=== PATIENT | male | born 1940 | race Caucasian/White ===

== ENCOUNTER 2016-09-20 14:18 | Emergency (ER) | payer OTHER ==
--- NOTE | ~2016-09-20 | CN ---
Consultation Report [facility] [id number] [place]. [address] NAME: BENITO PEREA : 44 STATUS : DEP [facility]#: [id number] AGE: 75 ADM/REG DATE : 09/20/16 MR#: [id number] REPORT SERV DATE: 09/20/16 DICTATED BY: SUSIE FERREIRA DATE: 09/20/16 REPORT STATUS : Draft TRANSCRIBED BY: MODL DATE: 09/20/16 MEDICAL CONSULTATION DATE OF CONSULTATION: 09/20/2016 ATTENDING PHYSICIAN: Dr. Isak Miner. REASON FOR CONSULTATION: Anemia. HISTORY: This is a 75-year-old white male, who had some preliminary blood work drawn for his annual physical exam by Dr. Kasia Alonzo. Someone from Dr. Alonzo's office called him and told him to get to the emergency room quickly because his hemoglobin was 7.4, hematocrit was 26.4. He does have an MCV of 68. He had a colonoscopy last year. Stool was checked in the emergency room by nurse practitioner, Antonia, which was negative for blood. He has no evidence of bleeding and no signs or symptoms of peptic ulcer disease. He does see Dr. Kentrell Goodwin for his routine colonoscopies, which was done most recently in the last year. He has had some occasional bright red blood per rectum, as he does have a history of fissures and hemorrhoids in the past. He has had no history of peptic ulcer disease. HOME MEDICATIONS: Include artificial tears, calcium carbonate, vitamin D, vitamin B12, Tylenol for sleep, docusate sodium, metformin 1500 mg p.o. daily, rosuvastatin 20 mg daily, triamcinolone cream, and Maxzide 25 p.o. daily. The patient has been feeling somewhat fatigued as he climbs stairs. SOCIAL HISTORY: He is , lives with . Does not smoke or drink. He lives off [facility] in [place] and sees Dr. Alonzo up at [facility]. He does not smoke, drink, or dip snuff. He goes to [facility] in [place]. FAMILY HISTORY: His father and his brother of heart attacks in the past. REVIEW OF SYSTEMS: He has had some dyspnea with exertion walking up 13 steps and does feel fatigued. Cannot do as much work as he used to. Does not have any swelling in lower extremities. No chest pain. No fever, chills, night sweats, melena, hematemesis, fits, seizures, or convulsions. The remainder of the review of systems is negative. PHYSICAL EXAMINATION: VITAL SIGNS: His blood pressure was 140/70 with a heart rate 80, respiratory rate 16, and afebrile. HEENT: EOMI. Sclerae are clear. Conjunctivae slightly pale. NECK: No bruit, without any JVD. CHEST: Clear to A and P. HEART: Regular S1, S2 without murmur or click. Consultation Report [facility] [id number] [place]. [address] NAME: BENITO PEREA : 44 STATUS : DEP ER PAT#: [id number] AGE: 75 ADM/REG DATE : 09/20/16 MR#: [id number] REPORT SERV DATE: 09/20/16 DICTATED BY: SUSIE FERREIRA DATE: 09/20/16 REPORT STATUS : Draft TRANSCRIBED BY: SUNDEEP DATE: 09/20/16 ABDOMEN: Soft, nontender. Bowel sounds positive. EXTREMITIES: Have no edema. Distal pulses intact dorsalis pedis and posterior tibial. NEUROLOGIC: Speech is cogent, goal directed, and without dysarthria. His reasoning is intact. LABORATORY DATA: A type and screen was done before my arrival. He has O positive blood. Antibody screen is negative. The hemoglobin is 7.4, hematocrit 26.4, MCV is 68.8 with platelet count of 223,000. His INR was 1.2. His CMP showed sodium 144, potassium 3.2, creatinine 1.14, BUN 14, glucose was 135. Liver tests were normal. ASSESSMENT: 1. Iron deficiency anemia, hypochromic microcytic. This is likely an iron-deficiency anemia. We will check a ferritin, iron, and TIBC. I am going to go ahead and prescribe him iron. He has hematocrit of 26.5 as above. Transfusion him. Requirement threshold for Medicare in an asymptomatic patient by 4.6 percentage points on the hematocrit. We will defer transfusion to later date. Stool was negative for blood here in the emergency room, but serial stools with three stool cards should be given to the patient when he follows up. I am going to start him on Nu-Iron 150 mg p.o. b.i.d. and have him return back to Dr. Alonzo in about seven to ten days to check the hemoglobin and hematocrit to see if it is rising. She may follow up on the ferritin, iron, and TIBC, which are being run at this point. 2. Hypokalemia. 3. Adult-onset diabetes mellitus. 4. Hypertension. PLAN: Iron treatment trial before consideration of transfusion. Follow up with Dr. Alonzo at the appointment next week. DB/MODL Susie Ferreira M.D. / [id number] CC: Denilson Townsend Jr, MD James Scott Manton, M.D. Kimberly Carlton, M.D.
[2016-09-20 13:37] LABS: BASOPHILS 0.3 %; BASOPHILS ABSOLUTE 0.02 10/3/uL (0.0-0.16); EOSINOPHILS 0.5 %; EOSINOPHILS ABSOLUTE 0.03 10/3/uL (0.0-0.53); ER CBC TAT 0 Hrs 05 Mins; IMMATURE GRANULOCYTES 0.2 %; IMMATURE GRANULOCYTES ABSOLUTE 0.01 10/3/uL (0.0-0.11); LYMPHOCYTES 15.7 %; LYMPHOCYTES ABSOLUTE 0.96 10/3/uL (0.67-4.30); MEAN PLATELET VOLUME 7.9 fL (9.2-13.0); MONOCYTES 6.5 %; NEUTROPHILS 76.8 %; RBC DISTRIBUTION WIDTH 18.2 % (12.0-16.0); WHITE BLOOD CELLS 6.1 10/3/uL (4.5-10.5)
[2016-09-20 13:38] LABS: HEMATOCRIT 26.4 % (40.0-51.0); HEMOGLOBIN 7.4 g/dL (13.6-17.8); MANUAL DIFF NO %; MEAN CORPUSCULAR HEMOGLOB 19.3 pg (26.0-34.0); MEAN CORPUSCULAR VOLUME 68.8 fL (80-100); PLATELET COUNT 233 10/3/uL (150-400); RED CELL COUNT 3.84 10/6/uL (4.7-6.1)
[2016-09-20 13:45] LABS: INTERNATIONAL NORMAL RATI 1.2 UNITS (-); PARTIAL THROMBO TIME 30.2 SEC (22.5-37.2); PROTIME (NOT ORD) 14.8 SEC (12.0-14.5)
[2016-09-20 13:53] LABS: A/G RATIO 1.2 (0.7-1.9); ALKALINE PHOSPHATASE 47 U/L (45-117); BUN (BLOOD UREA NITROGEN) 14 MG/DL (6-23); CALCIUM, SERUM 9.3 MG/DL (8.5-10.4); CHLORIDE, SERUM 108 MMOL/L (96-112); CO2 (CARBON DIOXIDE) 30 MMOL/L (24-34); CREATININE 1.14 MG/DL (0.70-1.30); GFR AFRICAN AMERICAN 74 ML/MIN (>=60); GFR NON AFRICAN AMERICAN 63 ML/MIN (>=60); GLOBULIN 3.3 G/DL (2.5-4.1); GLUCOSE, SERUM 135 MG/DL (60-99); POTASSIUM, SERUM 3.2 MMOL/L (3.5-5.3); SGOT(AST) 16 U/L (5-40); SGPT(ALT) 21 U/L (5-65); TOTAL BILIRUBIN 0.3 MG/DL (0-1.2); TOTAL PROTEIN 7.3 G/DL (6.0-8.5)
[2016-09-20 13:54] LABS: SODIUM, SERUM 144 MMOL/L (135-148)
[2016-09-20 13:57] LABS: ANISOCYTOSIS 1+ (5-10/OIF) (0-5/OIF); HYPOCHROMIA 3+ (>30/OIF) (0-2/OIF); PLATELET ESTIMATE ADQ (ADEQUATE); RBC MORPHOLOGY ABN (NORMAL)
[~2016-09-20 14:18] MED LIST: COZ50 PO; COZAAR100 MG PO; CRESTOR20 MG PO; GLUCOPHAGE1000 MG PO; MAX25 PO; PREV30 PO; TUMSROLL PO
[2016-09-20] MEDS ORDERED: MAX25 PO (14:43)
[2016-09-20] MEDS ORDERED: GLUCOPHAGE1000 MG PO (14:43)
[2016-09-20] MEDS ORDERED: CRESTOR20 MG PO (14:43)
[2016-09-20] MEDS ORDERED: TRIAMCINOLONE C80 GM TOP (14:44)
[2016-09-20] MEDS ORDERED: VITAMIN D1000 UNI1 PO (14:44)
[2016-09-20] MEDS ORDERED: TYLENOL PM PO (14:44)
[2016-09-20] MEDS ORDERED: CYANO1000T PO (14:44)
[2016-09-20] MEDS ORDERED: TEARS PLUS OPH (14:45)
[2016-09-20] MEDS ORDERED: DSS PO (14:45)
[2016-09-20] MEDS ORDERED: TUMSROLL PO (14:45)
[2016-09-20] MEDS ORDERED: MIRALAX POWDER1 PKT PO (14:45)
[2016-09-20 17:49] LABS: RETICULOCYTE COUNT 1.4 % (0.5-2.9); RETICULOCYTE COUNT ABSOLUTE 55.6 10/3/uL (20.2-119.8)
[2016-09-20 17:52] LABS: FERRITIN 2 NG/ML (26-388); IRON, SERUM 14 MCG/DL (35-150)
[2016-11-17] MEDS ORDERED: EZFE 200200 MG PO (11:26)
[2016-11-17] MEDS ORDERED: KLOR-CON M2020 MEQ PO (11:27)
[2016-11-17] MEDS ORDERED: CRESTOR20 MG PO (11:28)
[2016-11-17] MEDS ORDERED: COZ25 PO (11:29)
== END 2016-09-20 15:58 | disposition admitted as inpatient to this hospital (09) ==
LOC: ER 14:18
PROVIDERS: Nurse Practitioner
DX: D64.9 Anemia, unspecified (principal); I10 Essential (primary) hypertension; K21.9 Gastro-esophageal reflux disease without esophagitis; E11.9 Type 2 diabetes mellitus without complications; Z79.899 Other long term (current) drug therapy
CPT/HCPCS: 36415; 80053; 82728; 83540; 85025; 85045; 85610; 85730; 86850; 86900; 86901; 93005; 99285